=== PATIENT | male | born 1985 | race African-American/Black ===

== ENCOUNTER 2022-12-04 20:59 | Emergency (ER) | payer SELFPAY ==
[~2022-12-04] VITALS: Ht 185.4 cm; Wt 66.5 kg
[2022-12-04 21:15] VITALS: O2SAT 99
[2022-12-04] MEDS ORDERED: IBUPROFEN 600MG TABLET PO STA (22:34)
[2022-12-04] MEDS ORDERED: TETANUS, DIPHTHERIA, PERTUSSIS VAC/PF 0.5ML (>10YR OLD) IM ONE (22:45)
[2022-12-04] MEDS ORDERED: BACITRACIN ZINC OINT UDPKT TOP ONE (22:45)
[2022-12-04 23:29] VITALS: BP 95/58
[2022-12-04] MEDS ORDERED: CEPH500C2 MT (23:36)
[2022-12-04] MEDS ORDERED: IBUP-2029 PO (23:36)
[2022-12-05 00:11] VITALS: PULSE 68; RESP 18; TEMP 98.1
== END 2022-12-05 00:13 | disposition home or self-care (01) ==
LOC: ER 21:04
DX: S00.83XA Contusion of other part of head, initial encounter (principal); S80.212A Abrasion, left knee, initial encounter; S80.211A Abrasion, right knee, initial encounter; S00.81XA Abrasion of other part of head, initial encounter; Y08.89XA Assault by other specified means, initial encounter; Y93.89 Activity, other specified; Y92.89 Other specified places as the place of occurrence of the external cause; Y99.8 Other external cause status
CPT/HCPCS: 73110; 73130; 73562; 90715; 90471; 99284; Z7610 ×3